=== PATIENT | female | born 1990 | race Two or more races ===

== ENCOUNTER 2023-05-29 19:44 | Emergency (ER) | payer MEDICAID, OTHER ==
[~2023-05-29] VITALS: Ht 160 cm; Wt 66.0 kg
[2023-05-30 00:17] VITALS: BP 121/79; PULSE 15; RESP 20; TEMP 98.8; O2SAT 97
[2023-05-30] MEDS ORDERED: ACET500T58 PO (00:17)
[2023-05-30] MEDS ORDERED: PRED20TA2 PO (00:17)
[2023-05-30] MEDS ORDERED: AMOX875T4 PO (00:17)
[2023-05-30] MEDS: cefTRIAXone SOD 1,000 MG VL IM ONE (00:25)
[2023-05-30] MEDS: methylPREDNISolone SOD SUCC 125 MG/2 ML VL IM ONE (00:36)
== END 2023-05-30 00:40 | disposition home or self-care (01) ==
LOC: ER 19:44
DX: J02.9 Acute pharyngitis, unspecified (principal); H92.03 Otalgia, bilateral; Z79.2 Long term (current) use of antibiotics; Z79.899 Other long term (current) drug therapy
CPT/HCPCS: 96372; 99284; J0696; J2930

== ENCOUNTER 2023-10-29 16:13 | Emergency (ER) | payer MEDICAID ==
[~2023-10-29] VITALS: Ht 160 cm; Wt 66.7 kg
[~2023-10-29 16:13] MED LIST: ACET500T58 PO; AMOX875T4 PO; PRED20TA2 PO
[2023-10-29 16:28] VITALS: BP 116/75; PULSE 99; RESP 16; O2SAT 97
[2023-10-29] MEDS ORDERED: IBUP-1454 PO (20:53)
== END 2023-10-29 21:30 | disposition home or self-care (01) ==
LOC: ER 16:13
DX: S83.8X2A Sprain of other specified parts of left knee, initial encounter (principal); Z79.899 Other long term (current) drug therapy; X50.9XXA Other and unspecified overexertion or strenuous movements or postures, initial encounter; Y93.89 Activity, other specified; Y92.89 Other specified places as the place of occurrence of the external cause; Y99.8 Other external cause status
CPT/HCPCS: 29505; 73700